=== PATIENT | female | born 1965 | race Caucasian/White ===

== ENCOUNTER → 2018-01-06 11:12 | Outpatient (CLI) | payer MEDICAID, SELFPAY ==
[2018-01-06 14:24] LABS: ALB/GLOB Ratio 1.1 RATIO (0.9-2.4); AST(SGOT) 31 U/L (15-37); Alanine Aminotransfer ALT/SGPT 45 U/L (13-56); Albumin, Serum 3.9 g/dL (3.2-5.0); Alkaline Phosphatase 102 U/L (45-117); Anion Gap 10 (5-15); BUN 18 mg/dL (7-18); BUN/Creat Ratio 23.3 RATIO (10-20); Calcium,Total 9.2 mg/dL (8.5-10.1); Chloride 106 mmol/L (98-107); Cholesterol 77 mg/dL (200); Creatinine, Serum 0.77 mg/dL (0.55-1.02); EST Glomerular Filtration Rate 83 mL/min (>60); Est Glom Filt Rate - Afr Amer 101 mL/min (>60); Globulin 3.6 g/dL (2.2-4.2); Glucose 170 mg/dL (74-106); High Density Lipoprotein 38 mg/dL; Potassium 4.2 mmol/L (3.5-5.1); Protein, Total 7.5 g/dL (6.4-8.2); Sodium Level 139 mmol/L (136-145); Thyroid Stim Hormone (TSH) 2.08 uIU/mL (0.358-3.74); Triglycerides 131 mg/dL; Very Low Density Lipoprotein 26 mg/dL (5-40)
== END ==
PROVIDERS: Family Provider Family Medicine; PCP Family Medicine; Visit Provider Family Medicine
DX: E11.9 Type 2 diabetes mellitus without complications (principal)
CPT/HCPCS: 36415; 80053; 80061; 84443

== ENCOUNTER → 2018-10-25 10:20 | Outpatient (CLI) | payer MEDICAID, SELFPAY ==
[2018-10-25 13:16] LABS: ALB/GLOB Ratio 1.1 RATIO (0.9-2.4); AST(SGOT) 15 U/L (15-37); Alanine Aminotransfer ALT/SGPT 34 U/L (13-56); Albumin, Serum 4.1 g/dL (3.2-5.0); Alkaline Phosphatase 83 U/L (45-117); Anion Gap 10 (5-15); BUN 24 mg/dL (7-18); BUN/Creat Ratio 31.8 RATIO (10-20); Chloride 108 mmol/L (98-107); Cholesterol 92 mg/dL (200); Creatinine, Serum 0.76 mg/dL (0.55-1.02); EST Glomerular Filtration Rate 85 mL/min (>60); Est Glom Filt Rate - Afr Amer 103 mL/min (>60); Globulin 3.6 g/dL (2.2-4.2); Glucose 120 mg/dL (74-106); High Density Lipoprotein 39 mg/dL; Potassium 4.2 mmol/L (3.5-5.1); Protein, Total 7.7 g/dL (6.4-8.2); Sodium Level 140 mmol/L (136-145); Triglycerides 104 mg/dL; Very Low Density Lipoprotein 21 mg/dL (5-40)
== END ==
PROVIDERS: Family Provider Family Medicine; PCP Family Medicine; Visit Provider Family Medicine
DX: E11.9 Type 2 diabetes mellitus without complications (principal)
CPT/HCPCS: 36415; 80053; 80061

== ENCOUNTER → 2019-05-12 | Outpatient (CLI) | payer MEDICAID, SELFPAY ==
[2019-05-12 12:48] LABS: AST(SGOT) 20 U/L (15-37); Alanine Aminotransfer ALT/SGPT 38 U/L (13-56); Alkaline Phosphatase 97 U/L (45-117); Anion Gap 8 (5-15); BUN 27 mg/dL (7-18); BUN/Creat Ratio 30.7 RATIO (10-20); Calcium,Total 9.4 mg/dL (8.5-10.1); Chloride 106 mmol/L (98-107); Creatinine, Serum 0.88 mg/dL (0.55-1.02); EST Glomerular Filtration Rate 71 mL/min (>60); Est Glom Filt Rate - Afr Amer 86 mL/min (>60); Globulin 4.2 g/dL (2.2-4.2); Glucose 167 mg/dL (74-106); Protein, Total 8.2 g/dL (6.4-8.2); Sodium Level 137 mmol/L (136-145); Thyroid Stim Hormone (TSH) 2.61 uIU/mL (0.358-3.74)
== END | disposition home or self-care (01) ==
LOC: MFPLAB 10:49
PROVIDERS: Family Provider Family Medicine; PCP Family Medicine; Referring Provider Family Medicine; Visit Provider Family Medicine
DX: E11.9 Type 2 diabetes mellitus without complications (principal)
CPT/HCPCS: 36415; 80053; 84443

== ENCOUNTER → 2020-06-05 14:07 | Outpatient (CLI) | payer MEDICAID, SELFPAY ==
[2020-06-05 16:34] LABS: AST(SGOT) 20 U/L (15-37); Alanine Aminotransfer ALT/SGPT 36 U/L (13-56); Albumin, Serum 3.8 g/dL (3.2-5.0); Alkaline Phosphatase 91 U/L (45-117); Anion Gap 8 (5-15); BUN 18 mg/dL (7-18); BUN/Creat Ratio 22.2 RATIO (10-20); Calcium,Total 8.6 mg/dL (8.5-10.1); Chloride 106 mmol/L (98-107); Cholesterol 83 mg/dL (200); Creatinine, Serum 0.81 mg/dL (0.55-1.02); EST Glomerular Filtration Rate 78 mL/min (>60); Est Glom Filt Rate - Afr Amer 94 mL/min (>60); Globulin 3.9 g/dL (2.2-4.2); Glucose 119 mg/dL (74-106); High Density Lipoprotein 37 mg/dL; Potassium 3.8 mmol/L (3.5-5.1); Protein, Total 7.7 g/dL (6.4-8.2); Sodium Level 140 mmol/L (136-145); Thyroid Stim Hormone (TSH) 1.79 uIU/mL (0.358-3.74); Triglycerides 96 mg/dL; Very Low Density Lipoprotein 19 mg/dL (5-40)
== END ==
PROVIDERS: PCP Family Medicine; Referring Provider Family Medicine; Visit Provider Family Medicine
DX: E11.9 Type 2 diabetes mellitus without complications (principal)
CPT/HCPCS: 36415; 80053; 80061; 84443

== ENCOUNTER → 2021-02-07 14:13 | Outpatient (CLI) | payer MEDICAID, SELFPAY ==
--- NOTE | 2021-02-07 14:17 | US_ITS ---
STUDY: Limited neck ULTRASOUND REASON FOR EXAM: Female, 55 years old. CERVICAL LYMPHADENOPATHY TECHNIQUE: Ultrasound evaluation of the right neck was performed with real-time and static ram-scale imaging. COMPARISON: None. FINDINGS: Within the lateral right neck there is a 1.4 x 1.3 x 1.5 cm round low attenuation focus 0.78 cm deep to the skin surface with internal vascularity. There is no posterior shadowing. US/Head/Neck Soft Tissue IMPRESSION: Indeterminate 1.4 x 1.3 x 1.5 cm cystic appearing focus may reflect an enlarged lymph node or a possible cystic neoplastic process. Electronically Signed: Siri Munoz MD at 17:04 EDT Tel , Service support ,
== END ==
PROVIDERS: PCP Family Medicine; Referring Provider Family Medicine; Visit Provider Family Medicine
DX: R59.0 Localized enlarged lymph nodes (principal)
CPT/HCPCS: 76536

== ENCOUNTER → 2021-02-21 16:52 | Outpatient (CLI) | payer MEDICAID, SELFPAY ==
--- NOTE | 2021-02-21 16:53 | CT_ITS ---
STUDY: CT SOFT TISSUE NECK WITH CONTRAST REASON FOR EXAM: Female, 55 years old. Right-sided neck mass. RADIATION DOSAGE (If Supplied By Facility): CTDIvol = ( 19.28 ) mGy, DLP = ( 554.02 ) mGycm TECHNIQUE: The patient was scanned in a multi-detector CT scanner. High resolution transaxial imaging was performed following intravenous administration of IV 75mL Isovue-370. Sagittal and coronal images were reconstructed. Individualized dose optimization techniques were used for this CT. COMPARISON: Comparison is made with prior sonogram of the soft tissues of the neck dated 02/07/2021. FINDINGS: Normal bilateral parotid glands. Normal bilateral accounts payable specialist spaces. Normal bilateral parapharyngeal spaces. Normal bilateral carotid spaces. Normal bilateral sublingual and submandibular glands and spaces. Normal visualized nasopharynx. Normal retropharyngeal space. Normal perivertebral space. Normal visualized bilateral faucial tonsils. The visualized tongue, tongue base and oropharynx are normal. The sonographic abnormality corresponds to a 1.2 cm x 1.2 cm x 1.5 cm heterogeneous enhancing soft tissue nodule in the posterior triangle of the right-side of the neck just posterior to the sternocleidomastoid muscle. This most likely represents a necrotic lymph node. Small lymph nodes are also seen in the supraclavicular areas bilaterally. Normal epiglottis, bilateral vallecula and hypopharynx. The pre-epiglottic and paraglottic adipose spaces are normal. Normal visualized bilateral piriform sinuses, aryepiglottic folds, vocal cords, and arytenoid-cricoid articulations. Normal subglottic trachea. Normal bilateral lobes of the thyroid gland. Mild increased markings in the lung apices with the areas of bullous changes suggestive of a COPD and emphysema. Normal visualized paranasal sinuses. Loss of the normal cervical lordosis. CT/Soft Tissue Neck WITH Contrast IMPRESSION: 1.2 cm x 1.2 cm x 1.5 cm heterogeneous enhancing soft tissue nodule in the posterior triangle of the right side of the neck just posterior to the sternocleidomastoid muscle. A biopsy is recommended for further evaluation. Electronically Signed: Abdulaziz Charles MD at 8:50 EDT , Service support ,
[2021-02-21 17:06] LABS: CREATININE FINGERSTICK 1.1 mg/dL (0.55-1.02)
== END ==
PROVIDERS: PCP Family Medicine; Referring Provider Family Medicine; Visit Provider Family Medicine
DX: Z01.812 Encounter for preprocedural laboratory examination (principal); R59.0 Localized enlarged lymph nodes
CPT/HCPCS: 70491; Q9967

== ENCOUNTER → 2021-03-25 | Outpatient (CLI) | payer MEDICAID, SELFPAY ==
--- NOTE | 2021-03-25 | IMM_PTH ---
PATIENT: BEVERLY BRITO LOC: [facility] U#:[id number] AGE/SX: 55/F ROOM: RE03/25/[address]: Dr. Bobby Zimmer MD : 1965 BED: DIS: 03/25/2021 SPEC #: [id number] RECD: 03/27/21 10:15 STATUS: ROBERT REDina #: [id number] TREY: 03/25/21 00:[address]: Bobby Zimmer DEPT: IMMUNOHISTOCHEMISTRY RECD BY: Suha Dejesus ENTERED: 03/27/21 10:16 SP TYPE: IMMUNO OTHR DR: Dr. Reynaldo Cooper MD Tissues: A - Skin of neck, NOS B - Lymph node of neck, NOS Procedures: CD45 (add) CK8 (add) KI-67 (add) Vimentin (add) Pankeratin (initial) MELAN-A (add) S-100 (add) PHYSICIAN & INSTITUTION [place] [facility] [id number] SPECIMEN INFORMATION: Tissue Source: A ? Right neck skin lesion, B ? Right neck lymph node Clinical Info: Right neck skin lesion and enlarged lymph node Specimen Number: [id number] A & B CPT code: 80171, 50523 x13 METHODOLOGY: Deparaffinized sections of prefer/formalin-fixed tissue or PAP/DQ stained slides are incubated with monoclonal/polyclonal antibodies/oligonucleotide probes. Localization is made via biotin free immunoperoxidase method. Appropriate controls are performed and reacted as expected. Results on target cell population are indicated in the following table: RESULTS: ANTIBODY / CLONE RESULT Block A AE1-3 (AE1/AE3/PCK26) negative CK8 ([id number]) negative CD45 (RP2/18) negative Vimentin (V9) positive Melan A (A103) positive S-100 (4C4.9) positive Ki-67 (30-9) positive, low to moderate Block B AE1-3 (AE1/AE3/PCK26) negative CK8 (30tfkqW99) negative CD45 (RP2/18) negative Vimentin (V9) positive Melan A (A103) positive, focal S-100 (4C4.9) positive Ki-67 (30-9) positive, low These tests were developed and their performance characteristics determined by [facility]. They may not have been cleared or approved by the U.[place]. Food and Drug Administration. The FDA has determined that such clearance or approval is not necessary. The above immunohistochemical/dualISH markers are ordered and reviewed by the Pathologist. INTERPRETATION: A. Right neck skin lesion, punch biopsy: Invasive malignant melanoma. B. Right neck lymph node, biopsy: Metastatic malignant melanoma. SJ:bhavin 03/28/2021 Case has been reviewed in consultation with Dr. Mcmanus who concurs with the above diagnosis. IDC:[email or web address]
[2021-03-25 13:14] VITALS: BMI 42.9
--- NOTE | 2021-03-25 14:00 | LES_PTH ---
PATIENT: BEVERLY BRITO LOC: [facility] U#:[id number] AGE/SX: 55/F ROOM: RE03/25/[address]: Dr. Bobby Zimmer MD : 1965 BED: DIS: 03/25/2021 SPEC #: [id number] RECD: 03/25/21 15:00 STATUS: ROBERT DELFINA #: [id number] TREY: 03/25/21 14:[address]: Bobby Zimmer DEPT: SURGICAL PATHOLOGY RECD BY: Manan Wahl ENTERED: 03/26/21 08:28 SP TYPE: Lesion OTHR DR: Dr. Reynaldo Cooper MD Tissues: A - Skin of neck, NOS B - LYMPH NODE BIOPSY Procedures: Special Stain Group II Surgery Specimen Level IV Imprint (control) HEADER OPERATION: Right neck skin lesion and lymph node biopsy PRE-OP DIAGNOSIS: Right neck skin lesion and enlarged lymph node TISSUE SUBMITTED: A ? Right neck skin lesion, B ? Right neck lymph node MICROSCOPIC DIAGNOSIS A. Right neck skin lesion, punch biopsy: Invasive malignant melanoma. See comment. B. Right neck lymph node, core biopsy: Lymph node tissue with metastatic malignant melanoma. See comment. SJ:rg 03/28/2021 COMMENT The specimen is evaluated at the time of touch prep by Dr. Mcmanus. Immediate Evaluation = Atypical epithelioid cells present. A. The tumor thickness measures up to 5 mm. Immunohistochemistry ([id number]) supports the above diagnosis. B. The metastatic focus measures up to 5 mm in greatest dimension. Immunohistochemistry ([id number]) supports the above diagnosis. Flow cytometry study from [facility] shows no evidence of a B-cell or T-cell lymphoma in the sample with low viability. In the sample analyzed, there is no detectable clonal plasma cell population. The complete flow cytometry report is viewable in patient?s EMR. Results are reported to Dr. Zimmer?s office on 03/28/21. Case has been reviewed in consultation with Dr. Mcmanus who concurs with the above diagnosis. IDC:AM MICROSCOPIC DESCRIPTION Slides are reviewed. GROSS DESCRIPTION A - Received in fixative is one container labeled with the patient's name and designated right neck skin lesion. The specimen consists of a cylindrical fragment of light santos soft tissue measuring 0.7 cm in length and 0.3 cm in diameter. The specimen is totally submitted in one cassette. B - Received in saline is one container labeled with the patient's name and designated right neck lymph node. The specimen consists of two elongated fragments of light santos soft tissue measuring 1.5 cm in length and 0.1 cm in diameter. A portion of the specimen is submitted for flow cytometry analysis. Inner Tube Inserter touch prep smears are prepared. The remainder of the specimen is submitted in one cassette. / AM:bhavin 03/26/21 TC:[address] [facility]: [id number] x2, [id number] ADDENDUM ADDENDUM ADDENDUM ADDENDUM ADDENDUM ADDENDUM ADDENDUM ADDENDUM ADDENDUM ADDENDUM ADDENDUM ADDENDUM 02/20/2022 10:09 ADDENDUM 02/20/2022 10:09 ADDENDUM 02/20/2022 10:09 ADDENDUM 02/20/2022 10:09 ADDENDUM 02/20/2022 10:09 This addendum is added to incorporate an outside pathology consultation report. The case was examined at [facility] (#[id number]) and the following diagnosis was rendered. A. Skin, right neck, punch biopsy: Melanoma. B. Lymph node, right neck, core biopsy: Lymph node tissue involved by metastatic melanoma. Please see complete above mentioned consultation report in EMR
== END | disposition home or self-care (01) ==
PROVIDERS: PCP Family Medicine; Referring Provider Surgery; Visit Provider Surgery
DX: C43.4 Malignant melanoma of scalp and neck (principal)
CPT/HCPCS: 88305; 88313; 88341; 88342

== ENCOUNTER → 2021-04-18 07:48 | Outpatient (CLI) | payer MEDICAID, SELFPAY ==
[2021-04-11 15:24] VITALS: BMI 43.1
--- NOTE | 2021-04-18 07:49 | MRI_ITS ---
EXAM DESCRIPTION: MRI of the head CLINICAL HISTORY: 55 years Female, MELANOMA-STAGING COMPARISON: CT scan of the head and neck obtained on 02/21/2021 TECHNIQUE: An MRI was performed utilizing axial diffusion and ADC map images followed by axial T2 and FLAIR and gradient echo images followed by sagittal and axial T1 weighted images. A coronal T2-weighted sequence was obtained along with multiplanar postcontrast T1-weighted images of the head. FINDINGS: The diffusion weighted axial images and ADC map images of the head show no evidence of restricted diffusion. The patience, medulla and midbrain and cerebellum appear to be normal. The ventricles and sulci are normal in size and shape. The cerebral hemispheres appear to be normal.The basal ganglia appear to be normal. No enhancing masses or lesions are seen. Specifically no metastasis are seen. The gradient echo axial images are normal. No evidence of a Chiari I malformation is identified. The V4 segments of the vertebral artery, the basilar artery, the posterior cerebral arteries, the cavernous and supraclinoid carotid arteries, and the M1 segments of the middle cerebral arteries are all normal The orbits including the optic nerves and optic chiasm appear normal. The pituitary and pituitary infundibulum appear to be normal. fThe inner and outer tables of the skull are normal The frontal, ethmoid, maxillary, and sphenoid sinuses are normal. The mastoid air cells are normal. MRI/Brain W/WO Contrast IMPRESSION: Normal MRI of the head. Electronically Signed: Nasir Pierce DO at 13:04 EDT Tel , Service support ,
== END ==
PROVIDERS: PCP Family Medicine; Referring Provider Internal Medicine Medical Oncology; Visit Provider Internal Medicine Medical Oncology
DX: C43.4 Malignant melanoma of scalp and neck (principal); C43.9 Malignant melanoma of skin, unspecified; C77.9 Secondary and unspecified malignant neoplasm of lymph node, unspecified
CPT/HCPCS: 70553; A9575

== ENCOUNTER 2021-11-19 16:31 | Outpatient (CLI) | payer MEDICAID, SELFPAY ==
[2021-11-19 18:00] LABS: Absolute Lymphocyte Count 2.75 X10^3/uL (0.83-4.51); Absolute Neutrophil Count 3.8 X10^3/uL (2.0-7.7); Basophil# 0.02 X10^3/uL; Basophil% 0.3 % (0-1); Eosinophil# 0.38 X10^3/uL; Eosinophils% 5.2 % (0-5); Hematocrit 40.5 % (37-47); Lymphocyte # 2.75 X10^3/ul (0.83-4.51); Lymphocyte % 37.3 % (19-41); Mean Corp Hgb Conc 32.1 g/dL (32-36); Mean Corpuscular Hgb 25.8 pg (27.0-32.0); Mean Corpuscular Volume 80.5 fL (81-99); Monocyte% 5.4 % (0-10); NRBC Flagged by Analyzer 0 % (0-5); Neutrophil # 3.79 X10^3/uL (2.7-7.7); Neutrophil % 51.4 % (47-70); Platelet Count 305 K/mm3 (150-450); RBC Distribution Width CV 14.9 % (11.6-14.6); RBC Distribution Width SD 43.3 fl (35.1-43.9); Red Blood Count 5.03 M/mm3 (4.2-5.4); White Blood Count 7.4 K/mm3 (4.4-11.0)
[2021-11-19 18:26] LABS: BNP,B-Type NATRIURETIC PEPTIDE < 2.0 pg/mL (0-100); Vitamin B12 457 pg/mL (211-911); Vitamin D,25 Hydroxy 47.8 ng/mL
[2021-11-19 18:37] LABS: ALB/GLOB Ratio 0.7 RATIO (0.9-2.4); AST(SGOT) 17 U/L (15-37); Alanine Aminotransfer ALT/SGPT 21 U/L (13-56); Alkaline Phosphatase 104 U/L (45-117); Anion Gap 6 (5-15); BUN 21 mg/dL (7-18); BUN/Creat Ratio 25.5 RATIO (10-20); Calcium,Total 8.8 mg/dL (8.5-10.1); Chloride 103 mmol/L (98-107); Creatinine, Serum 0.82 mg/dL (0.55-1.02); EST Glomerular Filtration Rate 76 mL/min (>60); Est Glom Filt Rate - Afr Amer 92 mL/min (>60); Ferritin 288 ng/mL (8-252); Globulin 4.4 g/dL (2.2-4.2); Glucose 357 mg/dL (74-106); Iron 60 ug/dL (50-170); Iron Binding Capacity,Total 261 ug/dL (250-450); Potassium 4.1 mmol/L (3.5-5.1); Protein, Total 7.4 g/dL (6.4-8.2); Sodium Level 135 mmol/L (136-145); Thyroid Stim Hormone (TSH) 2.66 uIU/mL (0.358-3.74)
== END 2021-11-19 23:59 | disposition home or self-care (01) ==
LOC: MFPLAB 16:32
PROVIDERS: PCP Family Medicine; Referring Provider Family Medicine; Visit Provider Family Medicine
DX: R06.02 Shortness of breath (principal); E11.9 Type 2 diabetes mellitus without complications; D64.9 Anemia, unspecified; E55.9 Vitamin D deficiency, unspecified
CPT/HCPCS: 36415; 80053; 82306; 82607; 82728; 83540; 83550; 83880; 84443; 85025

== ENCOUNTER → 2022-11-20 | Outpatient (CLI) | payer MEDICAID, SELFPAY ==
[2022-11-20 15:01] LABS: Hematocrit 40.7 % (37-47); Mean Corp Hgb Conc 31.9 g/dL (32-36); Mean Corpuscular Hgb 26.9 pg (27.0-32.0); Mean Corpuscular Volume 84.3 fL (81-99); Platelet Count 262 K/mm3 (150-450); RBC Distribution Width SD 39.5 fl (35.1-43.9); Red Blood Count 4.83 M/mm3 (4.2-5.4); White Blood Count 8.4 K/mm3 (4.4-11.0)
[2022-11-20 15:45] LABS: ALB/GLOB Ratio 0.8 RATIO (0.9-2.4); AST(SGOT) 14 U/L (15-37); Alanine Aminotransfer ALT/SGPT 24 U/L (13-56); Albumin, Serum 3.4 g/dL (3.2-5.0); Alkaline Phosphatase 112 U/L (45-117); Anion Gap 9 (5-15); BUN 23 mg/dL (7-18); BUN/Creat Ratio 49.9 RATIO (10-20); Calcium,Total 9.4 mg/dL (8.5-10.1); Chloride 101 mmol/L (98-107); Cholesterol 91 mg/dL (200); Creatinine, Serum 0.46 mg/dL (0.55-1.02); EST Glomerular Filtration Rate 148 mL/min (>60); Est Glom Filt Rate - Afr Amer 179 mL/min (>60); Globulin 4.5 g/dL (2.2-4.2); Glucose 206 mg/dL (74-106); High Density Lipoprotein 37 mg/dL; Potassium 4.2 mmol/L (3.5-5.1); Protein, Total 7.9 g/dL (6.4-8.2); Sodium Level 138 mmol/L (136-145); Thyroid Stim Hormone (TSH) 3.59 uIU/mL (0.358-3.74); Triglycerides 107 mg/dL; Very Low Density Lipoprotein 21 mg/dL (5-40)
== END | disposition home or self-care (01) ==
LOC: MFPLAB 11:31
PROVIDERS: PCP Family Medicine; Referring Provider Family Medicine; Visit Provider Family Medicine
DX: J84.9 Interstitial pulmonary disease, unspecified (principal); E11.9 Type 2 diabetes mellitus without complications
CPT/HCPCS: 36415; 80053; 80061; 84443; 85027

== ENCOUNTER 2023-07-01 11:24 | Outpatient (CLI) | payer MEDICAID, SELFPAY ==
[2023-07-01 13:00] LABS: Vitamin B12 387 pg/mL (211-911)
[2023-07-01 13:25] LABS: ALB/GLOB Ratio 0.8 RATIO (0.9-2.4); AST(SGOT) 13 U/L (15-37); Alanine Aminotransfer ALT/SGPT 23 U/L (13-56); Albumin, Serum 3.5 g/dL (3.2-5.0); Alkaline Phosphatase 111 U/L (45-117); Anion Gap 6 (5-15); BUN 20 mg/dL (7-18); BUN/Creat Ratio 22.9 RATIO (10-20); Calcium,Total 9.8 mg/dL (8.5-10.1); Chloride 106 mmol/L (98-107); Creatinine, Serum 0.88 mg/dL (0.55-1.02); EST Glomerular Filtration Rate 70 mL/min (>60); Est Glom Filt Rate - Afr Amer 85 mL/min (>60); Globulin 4.5 g/dL (2.2-4.2); Glucose 133 mg/dL (74-106); Sodium Level 137 mmol/L (136-145); Thyroid Stim Hormone (TSH) 2.88 uIU/mL (0.358-3.74)
== END 2023-07-01 23:59 | disposition home or self-care (01) ==
LOC: MFPLAB 11:27
PROVIDERS: PCP Family Medicine; Visit Provider Family Medicine
DX: E55.9 Vitamin D deficiency, unspecified (principal); E11.65 Type 2 diabetes mellitus with hyperglycemia
CPT/HCPCS: 36415; 80053; 82306; 82607; 84443

== ENCOUNTER → 2024-03-09 | Outpatient (CLI) | payer MEDICAID, SELFPAY ==
[2024-03-09 18:09] LABS: Vitamin B12 1369 pg/mL (211-911)
[2024-03-09 18:10] LABS: ALB/GLOB Ratio 0.8 RATIO (0.9-2.4); AST(SGOT) 13 U/L (15-37); Alanine Aminotransfer ALT/SGPT 23 U/L (13-56); Albumin, Serum 3.5 g/dL (3.2-5.0); Alkaline Phosphatase 118 U/L (45-117); Anion Gap 7 (5-15); BUN 16 mg/dL (7-18); BUN/Creat Ratio 17.9 RATIO (10-20); Calcium,Total 9.6 mg/dL (8.5-10.1); Chloride 104 mmol/L (98-107); EST Glomerular Filtration Rate 68 mL/min (>60); Est Glom Filt Rate - Afr Amer 83 mL/min (>60); Globulin 4.3 g/dL (2.2-4.2); Glucose 221 mg/dL (74-106); Potassium 4.3 mmol/L (3.5-5.1); Protein, Total 7.8 g/dL (6.4-8.2); Sodium Level 136 mmol/L (136-145)
== END | disposition home or self-care (01) ==
LOC: MFPLAB 16:21
PROVIDERS: PCP Family Medicine; Visit Provider Family Medicine
DX: E11.65 Type 2 diabetes mellitus with hyperglycemia (principal); E53.8 Deficiency of other specified B group vitamins; E55.9 Vitamin D deficiency, unspecified
CPT/HCPCS: 36415; 80053; 82306; 82607

== ENCOUNTER → 2024-12-15 | Outpatient (CLI) | payer MEDICAID, SELFPAY ==
[2024-12-15 16:15] LABS: Hemoglobin 13.9 g/dL (12.0-15.0); Mean Corp Hgb Conc 33.1 g/dL (32-36); Mean Corpuscular Hgb 26.7 pg (27.0-32.0); Mean Corpuscular Volume 80.8 fL (81-99); Mean Platelet Vol. 10.1 fl (6.2-12.0); Platelet Count 229 K/mm3 (150-450); RBC Distribution Width CV 13.9 % (11.6-14.6); RBC Distribution Width SD 40.4 fl (35.1-43.9); White Blood Count 8.5 K/mm3 (4.4-11.0)
[2024-12-15 17:10] LABS: Cholesterol 86 mg/dL (<=200); High Density Lipoprotein 41 mg/dL; Low Density Lipoprotein Calc. 33 mg/dL; Triglycerides 63 mg/dL; Very Low Density Lipoprotein 13 mg/dL (5-40); Vitamin B12 1013 pg/mL (180-914); Vitamin D,25 Hydroxy 32.2 ng/mL (30-100); cholesterol:hdl ratio screen 2.09
[2024-12-15 17:30] LABS: ALB/GLOB Ratio 1.2 RATIO (0.9-2.4); AST(SGOT) 18 U/L (<=31); Alanine Aminotransfer ALT/SGPT 15 U/L (<=34); Albumin, Serum 4.2 g/dL (3.4-4.8); Alkaline Phosphatase 94 U/L (35-104); Anion Gap 13 (5-15); BUN 19 mg/dL (4-19); BUN/Creat Ratio 23.3 RATIO (10-20); Calcium,Total 9.6 mg/dL (7.6-11.0); Chloride 104 mmol/L (98-108); Creatinine, Serum 0.82 mg/dL (0.70-1.20); EST Glomerular Filtration Rate 82 (>60); Globulin 3.6 g/dL (2.2-4.2); Glucose 128 mg/dL (70-99); Potassium 4.2 mmol/L (3.3-5.1); Protein, Total 7.7 g/dL (5.9-8.4); Sodium Level 139 mmol/L (133-145); Total Bilirubin 0.36 mg/dL (0.00-1.30)
== END | disposition home or self-care (01) ==
LOC: MFPLAB 11:54
PROVIDERS: PCP Family Medicine; Referring Provider Family Medicine; Visit Provider Family Medicine
DX: E11.9 Type 2 diabetes mellitus without complications (principal)
CPT/HCPCS: 36415; 80053; 80061; 82306; 82607; 84443; 85027